=== PATIENT | female | born 1960 | race Caucasian/White ===

== ENCOUNTER → 2022-07-25 14:14 | Outpatient (CLI) | payer BC, SELFPAY ==
--- NOTE | ~2022-07-25 | XR_ITS ---
EXAMINATION: XR chest 2V 07/25/2022 14:32 INDICATION: Cough. Hypertension. Prior smoker. PROCEDURE: 2 view chest COMPARISON: 08/16/2015 FINDINGS: The lungs are clear. The cardiomediastinal silhouette is within normal limits. There are no pleural effusions. There is no pneumothorax suspected. IMPRESSION: 1: NO ACUTE CARDIOPULMONARY DISEASE. Reviewed, dictated and finalized at location A.
== END ==
PROVIDERS: PCP Family Medicine; Visit Provider Family Medicine
DX: R05.9 Cough, unspecified (principal)
CPT/HCPCS: 71046

== ENCOUNTER 2022-08-31 09:00 | Outpatient (CLI) | payer BC, SELFPAY ==
--- NOTE | 2022-08-31 15:10 | WPDPFTINT ---
PFT Procedure Performed PFT Procedure Performed Spirometry with Pre/Post Bronchodilator Plethysmography (Lung Vol) Diffusing Cap (DLCO) Flow Vol Loop PFT Interpretation Lung volumes were measured with the body plethysmography method. Lung volumes are unremarkable. Spirometry showed normal expiratory flow rates and a normal FEV1 to FVC ratio of 85%. Following administration of a bronchodilator there was no significant increase in expiratory flow rates. Lung diffusion capacity is within the normal range at 72% predicted. The flow volume loop is unremarkable. In comparison to previous study in 2016 the post bronchodilator FVC and FEV1 are now greater by approximately 0.4-0.5 L each. This improvement in the spirometric indices may in part be due to differences in patient height used for the 2 studies. Current predicted measurements are based on current patient height of 59 inches versus previous height of 57 inches in 2016. Clinical correlation advised. Impression: Spirometry, lung volumes, lung diffusion capacity all within the normal range.
== END 2022-08-31 09:01 | disposition home or self-care (01) ==
LOC: ANHPFT 09:01
PROVIDERS: PCP Family Medicine; Visit Provider Family Medicine
DX: R05.9 Cough, unspecified (principal); R06.02 Shortness of breath
CPT/HCPCS: 94060; 94726; 94729

== ENCOUNTER 2022-12-08 15:32 | Outpatient (CLI) | payer BC, SELFPAY ==
--- NOTE | ~2022-12-08 | CT_ITS ---
EXAMINATION: CT soft tissue neck chest wo DATE: 12/08/2022 16:08 INDICATION: Chest wall mass. Lump in throat. TECHNIQUE: Computed tomography (CT) of the neck and chest was performed without intravenous contrast. Automated exposure control and iterative reconstruction technique were employed. The dose-length pro duct was 890.92 mGy-cm. COMPARISON: None FINDINGS: CT NECK: There are no pathologically enlarged lymph nodes. The pharynx and larynx are normal. There i s mild mucosal thickening in right frontal sinus. The orbits are normal. The mastoid air cells are no rmal. There is mild cervical spondylosis. CT CHEST: The lungs demonstrate mild atelectasis. Calcified left lung nodules are consistent with old granulomatous disease. No pleural effusion. The heart size is normal. No pericardial effusion. There is a small sliding hiatal hernia. 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 There is mild thoracic spondylosis. IMPRESSION: 1. No abnormal mass identified. Reviewed, dictated and finalized at location E.
== END 2022-12-08 15:33 | disposition home or self-care (01) ==
PROVIDERS: PCP Family Medicine; Visit Provider Family Medicine
DX: R22.2 Localized swelling, mass and lump, trunk (principal); R22.1 Localized swelling, mass and lump, neck; R05.9 Cough, unspecified
CPT/HCPCS: 70490; 71250

== ENCOUNTER 2023-04-17 12:30 | Outpatient (CLI) | payer BC, SELFPAY ==
--- NOTE | 2023-04-18 12:37 | P.METCHAL_ITS ---
Methacholine Procedure Perform Procedure Performed Methacholine Challenge Methacholine Challenge Methacholine Challenge: This is a methacholine challenge test. The test was performed and interpreted in accordance with the 2017 ERS technical standard, endorsed by the ATS, using the GLI 2012 reference equations. Testing was performed with increasing doses of nebulized methacholine following a quadrupling dosage protocol. The methacholine dose was delivered via the [employer] nebulizer using a 1-minutes tidal breathing protocol. The best post-methacholine FEV1 values were used to determine the change from the post diluent FEV1. The delivered dose of methacholine was used to calculate the provocative dose causing a 20% fall in FEV1 (PD 20). Findings: Baseline FEV1 1.68 L, 86% predicted. Post diluent FEV1 1.57 L Post 1.81 mcg methacholine FEV1 1.83 L, increased 17% Post 7.26 mcg methacholine FEV1 1.85 L, increased 18% Post 29.03 mcg methacholine FEV1 1.73 L, increased 10% Post 116.1 mcg methacholine FEV1 1.60 L, increased 2% Post 464.4 mcg methacholine FEV1 1.61 L, increased 2% Post albuterol nebulization FEV1 1.71 L Impression: The PD20 is > 400 mcg which is categorized as normal airway hyperresponsiveness. There are no prior methacholine challenge studies for comparison
== END 2023-04-17 12:31 | disposition home or self-care (01) ==
LOC: ANHPFT 12:31
PROVIDERS: PCP Family Medicine; Visit Provider Nurse Practitioner Family
DX: R06.02 Shortness of breath (principal); R05.9 Cough, unspecified
CPT/HCPCS: 94070

== ENCOUNTER 2023-08-24 08:41 | Outpatient (CLI) | payer BC, SELFPAY ==
--- NOTE | ~2023-08-24 | US_ITS ---
EXAMINATION: US thyroid DATE: 08/24/2023 09:12 INDICATION: Hypothyroidism TECHNIQUE: Multiple ultrasound images of the thyroid were obtained. COMPARISON: None. FINDINGS: The right thyroid lobe measures 3.3 x 1.2 x 1.4 cm. The left thyroid lobe measures 2.8 x 0.8 x 0.9 c m. The thyroid isthmus measures 3 to 4 mm in thickness. No discrete nodules identified. There is norm al echotexture, echogenicity and vascular flow throughout the thyroid gland. IMPRESSION: 1. Normal thyroid ultrasound. Reviewed, dictated and finalized at location A.
== END 2023-08-24 08:42 | disposition home or self-care (01) ==
LOC: ANHIMG 08:43
PROVIDERS: PCP Family Medicine; Visit Provider Physician Assistant
DX: E03.9 Hypothyroidism, unspecified (principal)
CPT/HCPCS: 76536

== ENCOUNTER 2023-09-26 12:25 | Outpatient (CLI) | payer BC, SELFPAY ==
--- NOTE | ~2023-09-26 | XR_ITS ---
EXAMINATION: XR chest 2V 09/26/2023 12:54 INDICATION: Cough. Chronic. COPD. PROCEDURE: 2 view chest COMPARISON: 07/25/2022 FINDINGS: The lungs are clear. The cardiomediastinal silhouette is within normal limits. There are no pleural effusions. There is no pneumothorax suspected. IMPRESSION: 1: NO ACUTE CARDIOPULMONARY DISEASE. Reviewed, dictated and finalized at location B.
--- NOTE | ~2023-09-26 | XR_ITS ---
EXAMINATION: XR soft tissue neck DATE: 09/26/2023 12:55 INDICATION: Cough and lump at the anterior neck above the jugular notch TECHNIQUE: AP and lateral radiograph the soft tissues of the neck were obtained. COMPARISON: None. FINDINGS: Increased subcutaneous fat caudal to the mandible likely related to body habitus. Cervical soft tissu es are otherwise unremarkable with normal epiglottis and prevertebral soft tissues. No evident narrow ing of the airway. There is multilevel mild to moderate cervical facet osteoarthritis. Visualized upp er lungs are clear. IMPRESSION: 1. Cervical soft tissues are unremarkable. Reviewed, dictated and finalized at location A.
== END 2023-09-26 12:26 | disposition home or self-care (01) ==
LOC: ANHIMG 12:26
PROVIDERS: PCP Family Medicine; Visit Provider Physician Assistant
DX: R05.9 Cough, unspecified (principal); J98.8 Other specified respiratory disorders
CPT/HCPCS: 70360; 71046